=== PATIENT | female | born 1950 | race Caucasian/White ===

== ENCOUNTER 2019-04-18 06:17 | Inpatient (IN) | payer MEDICARE, OTHER ==
[2019-04-18] VITALS (13 sets, daily range): BP systolic 113–142; BP diastolic 59–71
[~2019-04-18] VITALS: Ht 170.2 cm; Wt 77.1 kg
--- NOTE | 2019-04-18 06:19 | NUR ---
TO ER BED 8 BIB EMS FROM HOME C/O "SOB AT HOME. 86% ON RA." +SOB NOTED. O2 SAT 96% ON 4L/NC. RHONCHI BILATERALLY ON AUSCULTATION. PT DIAPHORETIC, APPEARS VERY ANXIOUS. PLACE PT ON CARDIAC MONITORING, CONTINUOUS POX, O2@4L/NC. ER MD AT BEDSIDE TO EVAL PT WITH ORDERS RECEIVED. WILL CARRY OUT ORDERS.
--- NOTE | 2019-04-18 06:25 | NUR ---
[facility] BIPAP 15/5, RATE-16, FIO2-100%. WILL CONTINUE TO MONITOR PT CLOSELY.
--- NOTE | 2019-04-18 06:27 | NUR ---
RE-EVALUATED BY DR. QUINTANILLA
[2019-04-18] MEDS ORDERED: NTG 50 MG/D5W250 ML BOTTL 250 ML IV ONE ×2 (06:30→06:35)
--- NOTE | 2019-04-18 06:38 | NUR ---
PATIENT IS ABLE TO EXPECTORATE YELLOW PHELGM FROM HER MOUTH
[2019-04-18] MEDS ORDERED: INSU100V11 SQ (06:42)
[2019-04-18] MEDS ORDERED: LOSA50TA39 PO (06:42)
[2019-04-18] MEDS ORDERED: CARV12.52 PO (06:42)
[2019-04-18] MEDS ORDERED: ATOR80TA PO (06:42)
[2019-04-18] MEDS ORDERED: FURO40TA5 PO (06:42)
[2019-04-18] MEDS ORDERED: MAGN400T8 PO (06:42)
[2019-04-18] MEDS ORDERED: PANT40TA4 PO (06:42)
--- NOTE | 2019-04-18 06:46 | NUR ---
FLU SWAB SAMPLE OBTAINED AND SENT TO LAB
--- NOTE | 2019-04-18 06:47 | NUR ---
CALLED NURSING SUP FOR BED
[2019-04-18 06:51] LABS: BASOPHILS # (AUTO) 0.2 /CMM (0.0-0.2); BASOPHILS % (AUTO) 1.1 % (0.0-2.0); EOSINOPHILS % (AUTO) 1.8 % (0.0-6.0); HEMATOCRIT 41 % (33-45); HEMOGLOBIN 12.9 g/dL (11.5-14.8); LYMPHOCYTES # (AUTO) 3.8 /CMM (0.8-4.8); LYMPHOCYTES % (AUTO) 26.4 % (20.0-44.0); MEAN CORPUSCULAR HGB CONC 31 g/dl (31.0-36.0); MEAN CORPUSCULAR VOLUME 87 fL (82-100); MONOCYTES # (AUTO) 0.7 /CMM (0.1-1.30); MONOCYTES % (AUTO) 4.6 % (2.0-12.0); NEUTROPHILS # (AUTO) 9.6 /CMM (1.8-8.9); NEUTROPHILS % (AUTO) 66.1 % (43.0-81.0); PLATELET COUNT (AUTO) 351 /CMM (150-450); RED BLOOD CELL COUNT(AUTO) 4.72 MIL/uL (4.0-5.2); WHITE BLOOD COUNT (AUTO) 14.6 K/uL (4.3-11.0)
--- NOTE | 2019-04-18 07:01 | NUR ---
PT VERBALIZE FEELING BETTER. ER MD AT BEDSIDE TO RE-EVAL PT.
[2019-04-18] MEDS ORDERED: FERR325T23 PO (07:12)
[2019-04-18] MEDS ORDERED: INSU100V37 SQ (07:12)
[2019-04-18] MEDS ORDERED: CLOP75TA15 PO (07:12)
[2019-04-18] MEDS ORDERED: BROM3DRO EACHEYE (07:12)
[2019-04-18] MEDS ORDERED: ASPI-1169 PO (07:12)
[2019-04-18] MEDS ORDERED: METF-441 PO (07:12)
[2019-04-18 07:21] LABS: CALCIUM, SERUM 8.8 mg/dL (8.5-10.1); CREATININE 0.7 mg/dL (0.6-1.3); POTASSIUM 4.3 mmol/L (3.5-5.1)
[2019-04-18 07:29] LABS: ABG BASE EXCESS 1.4 mmol/L; ABG OXYGEN SATURATION 99.1 % (92.0-98.5); ABG PCO2 49.5 mmHg (35.0-45.0); ABG PH 7.362 (7.350-7.450); ABG PO2 535.8 mmHg (75.0-100.0); AaDO2 127.7 mmHg; COHb 0.3 % (0.5-1.5); MetHb 0.5 % (0.0-1.5); O2Hb 98.3 % (94.0-97.0); SITE, ABG Right Brachial; VENT MODE, BG ST 15/5 R 16
--- NOTE | 2019-04-18 07:30 | NUR ---
REPORT GIVEN TO TEVIN BAUTISTA.
[2019-04-18 07:32] LABS: ALBUMIN 3.8 g/dL (3.4-5.0); BILIRUBIN,DIRECT 0.1 mg/dL (0.0-0.2); BILIRUBIN,TOTAL 0.4 mg/dL (0.2-1.0); TOTAL PROTEIN, SERUM 8.5 g/dL (6.4-8.2)
--- NOTE | 2019-04-18 07:46 | NUR ---
PAGED DR. VEGA FOR ADMISSION
[2019-04-18] MEDS ORDERED: ALLO300T2 PO (07:47)
[2019-04-18] MEDS ORDERED: CEFTRIAXONE 1 G VIAL ONE (07:53)
[2019-04-18] MEDS ORDERED: CEFTRIAXONE 1 G in IV D5W 50 ML IV ONE (08:00)
[2019-04-18] MEDS ORDERED: AZITHROMYCIN 500 MG in IV D5W 250 ML IV ONE (08:00)
--- NOTE | 2019-04-18 08:01 | NUR ---
Assumed care patient recieved ob Bipap awake alert noted tolerated well Nitro Drip 100 mcg infusing well no edema ,no redeness continue to monitor
--- NOTE | 2019-04-18 08:38 | NUR ---
Patient awake alert non distress remain on Bipap ,tolerated well Nitro drip down 10 mcg noted infusing well no edema no pain to site patient awake alert made aware paln of care admit to floor ICU report given to Alexia ABARCA
--- NOTE | 2019-04-18 08:48 | NUR ---
No lasix orders per Emergency Room
--- NOTE | 2019-04-18 10:00 | NUR ---
TENTERING MACHINE FEEDER ADMITTING NOTES Rec'd report from DROP WIRE ALINER Naveen. Pt to ICU d/t Acute Respiratory Failure, CHF, PNA - will be on BIPAP. Pt transferred via gurney, admitted to 254. Pt is A/O x 3, denies CP/ discomfort. On NC at 2lpm sating at 98%. BIPAP standby. Placed on telemonitor, SR 82 bpm. Has 2 IV line access - RH G20 on Nitro drip at 10 mcg & LH G20 SL, patent & intact w/ no s/sx of infection/infiltration noted. Pt & family oriented to room. Belongings checked & recorded. Safety precaution in place w/ bed in lowest & locked pos. Call light placed w/in reach. Will cont to monitor & attend pt needs. Dr. Doyle aware of the admission.
--- NOTE | 2019-04-18 10:51 | NUR ---
Pt seen & examined by Dr. Doyle, family at bedside. Addendum: 04/18/19 at 1054 by TIRSO DRAKE RN Addendum: Per , if pt stable later in the PM, may downgrade to MS. [place] ORTIZ, no need for sliding scale.
[2019-04-18] MEDS ORDERED: Z GUARD REMEDY 2 OZ OINT TP PRN (11:00)
[2019-04-18] MEDS ORDERED: ONDANSETRON HCL/PF 4 MG/2 ML VIAL IVP PRN (11:00)
[2019-04-18] MEDS ORDERED: MAGNESIUM HYDROXIDE 30 ML UDC PO PRN (11:00)
[2019-04-18] MEDS ORDERED: MAG HYDROX/AL HYDROX/SIMETH 30 ML UDC PO PRN (11:00)
[2019-04-18] MEDS ORDERED: ACETAMINOPHEN 325 MG TABLET PO PRN (11:00)
[2019-04-18] MEDS ORDERED: ZOLPIDEM TARTRATE 5 MG TABLET PO PRN (11:00)
[2019-04-18] MEDS ORDERED: DEXTROSE 50%-WATER 50 ML DISP.SYRIN IV PRN (11:00)
[2019-04-18] MEDS ORDERED: HYDROCODONE/APAP 5/325MG 1 EACH TABLET PO PRN (11:00)
[2019-04-18] MEDS: BLOOD SUGAR DIAGNOSTIC 1 EACH STRIP IN SCH ×3 (11:46→22:03)
[2019-04-18] MEDS: FERROUS SULFATE (325 MG) 325 MG/TAB TABLET PO SCH (17:37)
[2019-04-18] MEDS: METFORMIN 850 MG TABLET PO SCH (17:37)
[2019-04-18] MEDS: CARVEDILOL 12.5 MG TABLET PO SCH (17:38)
[2019-04-18] MEDS: INSULIN ASPART/LISPRO 100 UNIT/ML CARTRIDGE SQ SCH ×2 (17:39→17:47)
--- NOTE | 2019-04-18 18:59 | NUR ---
CASTING AND PASTING SUPERVISOR CLOSING NOTES Pt resting on bed comfortably, no complaints. No SOB while on R/A, NC PRN. SR on telemonitor. VS WNL. IV line access kept patent & intact. Pt for transfer to [place] as ordered, awaiting for bed. Safety precaution kept at all times. Will endorse to PM RN for MARQUES.
--- NOTE | 2019-04-18 19:30 | NUR ---
ADMISSION NURSE COORDINATOR NOTE PT IN BED A/O X 4 BURMESE SPEAKING. NO DISTRESS OR DISCOMFORT NOTED. DENIES PAIN. ON TELE MONITOR SR HR 76. SKIN INTACT. LT HAND AND RT WRIST #20G SL INTACT AND PATENT. NO S/S OF HYPO OR HYPERGLYCEMIA NOTED. ALL NEEDS ATTENDED. SIDE RAILS UP X 2 AND CALL LIGHT WITHIN REACH. VSS. DTR AT BED SIDE. CONTINUE TO MONITOR HER. PT IS MS WAITING FOR BED AVAILABLE.
--- NOTE | 2019-04-18 21:00 | NUR ---
CARRIER ASSOCIATE NOTE PT TRANSFERED TO MS 1 IN ROOM 105, NO DISTRESS OR DISCOMFORT NOTED. NO S/S OF PAIN. DTR AT BED SIDE WITH THE PT. CONTINUE TO CARE FOR THE PT.
[2019-04-18] MEDS: INSULIN GLARGINE, 100 UNIT/ML CARTRIDGE SQ SCH (22:00)
--- NOTE | 2019-04-18 22:04 | NUR ---
MS RN NOTE BS 129, PT REFUSED LANTUS 35 UNITS AT THIS TIME. STATES " WITH THIS LOW BS, DON'T GIVE ME LANTUS". CONTINUE TO MONITOR HER.
[2019-04-19 04:00] VITALS: BP 138/79
[2019-04-19 06:19] LABS: BASOPHILS % (AUTO) 0.5 % (0.0-2.0); EOSINOPHILS % (AUTO) 1.4 % (0.0-6.0); HEMATOCRIT 33 % (33-45); HEMOGLOBIN 10.8 g/dL (11.5-14.8); LYMPHOCYTES % (AUTO) 21.2 % (20.0-44.0); MEAN CORPUSCULAR HGB CONC 33 g/dl (31.0-36.0); MEAN CORPUSCULAR VOLUME 85 fL (82-100); MONOCYTES # (AUTO) 0.6 /CMM (0.1-1.30); MONOCYTES % (AUTO) 6.7 % (2.0-12.0); NEUTROPHILS # (AUTO) 6.5 /CMM (1.8-8.9); NEUTROPHILS % (AUTO) 70.2 % (43.0-81.0); PLATELET COUNT (AUTO) 271 /CMM (150-450); RED BLOOD CELL COUNT(AUTO) 3.93 MIL/uL (4.0-5.2); WHITE BLOOD COUNT (AUTO) 9.3 K/uL (4.3-11.0)
[2019-04-19 06:20] LABS: CALCIUM, SERUM 8.6 mg/dL (8.5-10.1); CREATININE 0.6 mg/dL (0.6-1.3); MAGNESIUM 1.7 mg/dL (1.8-2.4); PHOSPHORUS 3.6 mg/dL (2.5-4.9)
--- NOTE | 2019-04-19 06:36 | NUR ---
MS RN NOTE PT IN BED NO DISTRESS OR DISCOMFORT NOTED. DENIES PAIN. DTR AT BED SIDE. SIDE RAILS UP X 2 AND CALL LIGHT WITHIN REACH. WILL ENDORSE TO DAY SHIFT NURSE FOR CONTINUE TO CARE.
[2019-04-19 08:00] VITALS: BP 118/74
[2019-04-19] MEDS: BLOOD SUGAR DIAGNOSTIC 1 EACH STRIP IN SCH ×4 (08:13→22:13)
[2019-04-19] MEDS: FUROSEMIDE 40 MG/4 ML VIAL IV SCH (08:15)
[2019-04-19] MEDS: CARVEDILOL 12.5 MG TABLET PO SCH ×2 (08:16→16:54)
[2019-04-19] MEDS: FERROUS SULFATE (325 MG) 325 MG/TAB TABLET PO SCH ×2 (08:16→16:54)
[2019-04-19] MEDS: PANTOPRAZOLE 40 MG TABLET.DR PO SCH (08:16)
[2019-04-19] MEDS: LOSARTAN POTASSIUM 50 MG TABLET PO SCH (08:16)
[2019-04-19] MEDS: ALLOPURINOL 100 MG TABLET PO SCH (08:16)
[2019-04-19] MEDS: MAGNESIUM OXIDE 400 MG TABLET PO SCH (08:19)
[2019-04-19] MEDS: METFORMIN 850 MG TABLET PO SCH ×2 (08:19→16:55)
[2019-04-19] MEDS: ATORVASTATIN 40 MG TABLET PO SCH (08:27)
[2019-04-19] MEDS: INSULIN GLARGINE, 100 UNIT/ML CARTRIDGE SQ SCH ×2 (08:42→21:20)
[2019-04-19] MEDS: CEFTRIAXONE 1 G in IV D5W 50 ML IV SCH (08:43)
[2019-04-19] MEDS: AZITHROMYCIN 500 MG in IV D5W 250 ML IV SCH (10:49)
[2019-04-19] MEDS: ASPIRIN 81 MG TAB.CHEW PO SCH (12:45)
[2019-04-19] MEDS: CLOPIDOGREL BISULFATE 75 MG TABLET PO SCH (12:46)
[2019-04-19] MEDS: Magnesium 1GM/D5W 100ML PREMIX 100 ML IV SCH ×2 (12:46→13:45)
[2019-04-19 16:00] VITALS: BP 121/55
--- NOTE | 2019-04-19 17:20 | NUR ---
RN NOTE PATIENT REFUSED INSULIN MED AT THIS TIME. BS IS I56. EXPLAINED RISKS AND BENEFITS, STILL PATIENT REFUSED. PATIENT IS A&O X4.
[2019-04-19] MEDS: INSULIN ASPART/LISPRO 100 UNIT/ML CARTRIDGE SQ SCH (17:22)
--- NOTE | 2019-04-19 18:51 | NUR ---
MS/RN CLOSING NOTES PATIENT CONTINUES TO REMAIN IN STABLE CONDITION THROUGHOUT THE SHIFT. PROVIDED COMFORT AND SAFETY. IV ACCESS INTACT AND PATENT. FLUSHING WELL. NO S/S OF INFECTION OR INFILTRATION. PATIENT ABLE TO TOLERATE MEALS AND MEDS WELL. ALL NEEDS ANTICIPATED. CALL LIGHT WITHIN REACHED. BED LOCKED AND IN LOWEST POSITION. WILL CONTINUE TO MONITOR CLOSELY. ENDORSED TO PM NURSE FOR MARQUES.
--- NOTE | 2019-04-19 19:40 | NUR ---
MS RN OPENING NOTES, RECEIVED PATIENT IN BED RESTING, PATIENT IS IN STABLE CONDITION . A/O X4. IV ON LH #20 SL. INTACT AND PATENT. FLUSHING WELL. NO S/S OF INFILTRATION. PATIENT DENIES ANY DISCOMFORT OR PAIN AT THIS TIME. CALL LIGHT WITHIN REACHED. BED IN LOCK/LOW POSITION. WILL CONTINUE TO MONITOR CLOSELY.
[2019-04-19 20:00] VITALS: BP 104/43
[2019-04-20 04:00] VITALS: BP 120/65
--- NOTE | 2019-04-20 06:43 | NUR ---
MS RN CLOSING NOTES, PATIENT IN BED RESTING, PATIENT IS IN STABLE CONDITION . A/O X4. IV ON LH #20 SL. INTACT AND PATENT. FLUSHING WELL. NO S/S OF INFILTRATION. PATIENT DENIES ANY DISCOMFORT OR PAIN AT THIS TIME. ALL CARE HAS BEEN PROVIDED DURING PM SHIFT. CALL LIGHT WITHIN REACHED. BED IN LOCK/LOW POSITION. WILL ENDORSE THE PATIENT TO AM RN FOR MARQUES.
[2019-04-20 07:38] LABS: BASOPHILS # (AUTO) 0.1 /CMM (0.0-0.2); BASOPHILS % (AUTO) 0.5 % (0.0-2.0); HEMATOCRIT 36 % (33-45); HEMOGLOBIN 11.6 g/dL (11.5-14.8); LYMPHOCYTES # (AUTO) 1.8 /CMM (0.8-4.8); LYMPHOCYTES % (AUTO) 19.3 % (20.0-44.0); MEAN CORPUSCULAR HGB CONC 32 g/dl (31.0-36.0); MEAN CORPUSCULAR VOLUME 84 fL (82-100); MONOCYTES # (AUTO) 0.6 /CMM (0.1-1.30); MONOCYTES % (AUTO) 6.2 % (2.0-12.0); NEUTROPHILS # (AUTO) 6.9 /CMM (1.8-8.9); PLATELET COUNT (AUTO) 300 /CMM (150-450); RED BLOOD CELL COUNT(AUTO) 4.25 MIL/uL (4.0-5.2); WHITE BLOOD COUNT (AUTO) 9.5 K/uL (4.3-11.0)
[2019-04-20] MEDS: BLOOD SUGAR DIAGNOSTIC 1 EACH STRIP IN SCH ×2 (07:46→11:36)
[2019-04-20 07:50] LABS: CALCIUM, SERUM 8.7 mg/dL (8.5-10.1); CREATININE 0.5 mg/dL (0.6-1.3); POTASSIUM 3.9 mmol/L (3.5-5.1)
[2019-04-20 08:00] VITALS: BP 119/53
[2019-04-20] MEDS: FERROUS SULFATE (325 MG) 325 MG/TAB TABLET PO SCH (08:22)
[2019-04-20] MEDS: ALLOPURINOL 100 MG TABLET PO SCH (08:22)
[2019-04-20] MEDS: MAGNESIUM OXIDE 400 MG TABLET PO SCH (08:23)
[2019-04-20] MEDS: PANTOPRAZOLE 40 MG TABLET.DR PO SCH (08:24)
[2019-04-20 08:25] VITALS: BP 119/53
[2019-04-20] MEDS: LOSARTAN POTASSIUM 50 MG TABLET PO SCH (08:25)
[2019-04-20] MEDS: CARVEDILOL 12.5 MG TABLET PO SCH (08:25)
[2019-04-20] MEDS: FUROSEMIDE 40 MG/4 ML VIAL IV SCH (08:26)
[2019-04-20] MEDS: CEFTRIAXONE 1 G in IV D5W 50 ML IV SCH (08:27)
[2019-04-20] MEDS: METFORMIN 850 MG TABLET PO SCH (08:35)
[2019-04-20] MEDS: INSULIN GLARGINE, 100 UNIT/ML CARTRIDGE SQ SCH (08:37)
[2019-04-20] MEDS: ATORVASTATIN 40 MG TABLET PO SCH (09:00)
[2019-04-20] MEDS: CLOPIDOGREL BISULFATE 75 MG TABLET PO SCH (09:00)
[2019-04-20] MEDS: AZITHROMYCIN 500 MG in IV D5W 250 ML IV SCH (11:01)
[2019-04-20] MEDS: ASPIRIN 81 MG TAB.CHEW PO SCH (11:36)
[2019-04-20] MEDS ORDERED: FURO-144 PO (13:21)
[2019-04-20] MEDS ORDERED: LEVO500T75 PO (13:21)
--- NOTE | 2019-04-20 15:00 | NUR ---
rn note pt discharged home with daughter and family, prescription sent to [facility], teachings done to pt, and daughter, they verbalized understanding, exit care done, discharge instructions provided, IV site and id band removed. papers given to pt, copies left in chart. multispecialty clinic appointment set up on 04/26/19 at 1400. information provided.
[2019-04-20] MEDS ORDERED: CLOPIDOGREL BISULFATE 75 MG TABLET PO SCH (17:00)
[2019-04-20] MEDS ORDERED: ATORVASTATIN 40 MG TABLET PO SCH (22:00)
== END 2019-04-20 15:00 | disposition home health service (06) | DRG 189 ==
LOC: ER 06:19 → ICU 08:17 → MEDSG1 21:09
PROVIDERS: ADMIT Family Medicine; ATTEND Registered Nurse
PROC: 5A09357 Assistance with Respiratory Ventilation, Less than 24 Consecutive Hours, Continuous Positive Airway Pressure (ICD-10-PCS; principal; 2019-04-18)
DX: J96.01 Acute respiratory failure with hypoxia (principal); I21.A1 Myocardial infarction type 2; I50.33 Acute on chronic diastolic (congestive) heart failure; E87.2 Acidosis; N39.0 Urinary tract infection, site not specified; I11.0 Hypertensive heart disease with heart failure; J96.02 Acute respiratory failure with hypercapnia; I25.10 Atherosclerotic heart disease of native coronary artery without angina pectoris; E11.65 Type 2 diabetes mellitus with hyperglycemia; D72.829 Elevated white blood cell count, unspecified; Z83.3 Family history of diabetes mellitus; E66.9 Obesity, unspecified; Z95.1 Presence of aortocoronary bypass graft; M1A.9XX0 Chronic gout, unspecified, without tophus (tophi); Z79.84 Long term (current) use of oral hypoglycemic drugs; J06.9 Acute upper respiratory infection, unspecified; Z68.26 Body mass index [BMI] 26.0-26.9, adult
CPT/HCPCS: 31720; 36415; 36600; 71045-TC; 80048-TC; 80061-TC; 80076-TC; 82803-TC; 82962-TC; 83605-TC; 83735-TC; 83880; 84100-TC; 84484-TC; 85025-TC; 85730-TC; 87040-TC; 87081-TC; 94660; 94799-TC; 99082-TC; G0378; J0456; J0696; J1815; J1940; J3475; J3490; J7040; J7050; J7060